=== PATIENT | male | born 1980 | race Caucasian/White ===

== ENCOUNTER 2020-01-31 09:00 | Outpatient (REF) | payer BC, SELFPAY ==
--- NOTE | 2020-01-31 10:15 | ECG_ITS ---
Test Reason : ANNUAL PHYSICAL Blood Pressure : / mmHG Vent. Rate : 050 BPM Atrial Rate : 050 BPM P-R Int : 190 ms QRS Dur : 106 ms QT Int : 434 ms P-R-T Axes : 056 005 043 degrees QTc Int : 395 ms Sinus bradycardia with marked sinus arrhythmia Incomplete right bundle branch block Abnormal ECG When compared with ECG of 08-MAR-2016 08:12, Sinus Arrhythmia is new Referred By: Malcolm Tobias Electronically Signed By:FUNMILAYO BACA MD
[2020-01-31 10:46] LABS: MANUAL DIFF FLAG NO
[2020-01-31 10:52] LABS: Basophils Percent Auto 0.3 % (0-2); Eosinophils Absolute Auto 0.1 X10*3/uL (0.0-0.4); Eosinophils Percent Auto 1.9 % (0-4); Hematocrit 44.1 % (42-52); Hemoglobin 14.6 g/dl (14.0-18.0); Imm Gran Abs Auto 0.04 X10*3/uL (0.00-0.03); Imm Gran Pct Auto 0.6 % (0.0-0.4); Lymphocytes Absolute Auto 1.9 X10*3/uL (1.2-4.9); Lymphocytes Percent Auto 28.1 % (20-40); Mean Corpuscular HGB Conc 33.1 g/dl (31.0-36.0); Mean Corpuscular Hemoglobin 27.7 pg (27.0-33.0); Mean Corpuscular Volume 83.5 fL (80-98); Mean Platelet Volume 10.2 fL (9.4-12.4); Monocytes Absolute Auto 0.5 X10*3/uL (0.1-1.2); Monocytes Percent Auto 7.1 % (2-11); Neutrophils Absolute Auto 4.2 X10*3/uL (2.0-8.3); Platelet Count 281 X10*3/uL (160-400); Red Blood Count 5.28 X10*6/uL (4.60-5.80); Red Cell Distribution Width 12.2 % (11.0-16.0); White Blood Count 6.7 X10*3/uL (4.8-10.8)
[2020-01-31 11:05] LABS: Glucose Urine UA NEG (NEG); Leukocyte Esterase Urine NEG (NEG); Nitrite Urine NEG (NEG); Specific Gravity - Urine 1.025 (1.005-1.025); Urine Blood NEG (NEG); Urine Ketones NEG (NEG); Urine Protein NEG (NEG-TRACE)
[2020-01-31 11:08] LABS: Alanine Aminotransferase 22 U/L (0-40); Albumin Level 4.5 g/dL (3.5-5.0); Alkaline Phosphatase 55 U/L (39-117); Anion Gap 10 (12-20); Aspartate Amino Transferase 16 U/L (5-37); Bilirubin Total 0.7 mg/dL (0.0-1.0); Blood Urea Nitrogen 19 mg/dL (9-16); Calcium 9.2 mg/dL (8.4-10.2); Carbon Dioxide 31 mmol/L (22-29); Chloride 103 mmol/L (96-108); Cholesterol 150 mg/dL; Estimated Glomerular Filt Rate > 60; Glucose Fasting 81 mg/dL (60-99); HDL Cholesterol 40 mg/dL; LDL Cholesterol Calculated 87 mg/dl; Potassium 4.4 mmol/l (3.3-5.1); Sodium 140 mmol/L (135-145); Triglycerides 117 mg/dL
[2020-01-31 11:10] LABS: Appearance Urine CLEAR; Color Urine YELLOW
== END 2020-01-31 09:01 | disposition home or self-care (01) ==
LOC: HO.LAB 09:00
PROVIDERS: PCP Internal Medicine; Visit Provider Internal Medicine
DX: Z00.00 Encounter for general adult medical examination without abnormal findings (principal); K21.00 Gastro-esophageal reflux disease with esophagitis, without bleeding; I49.8 Other specified cardiac arrhythmias
CPT/HCPCS: 36415; 80053; 80061; 81003; 85025; 93005

== ENCOUNTER → 2020-02-14 12:59 | Outpatient (BNVA) | payer BC, SELFPAY | PROVIDERS: PCP Internal Medicine; Visit Provider Urology | DX: Z76.89 Persons encountering health services in other specified circumstances (principal) ==

== ENCOUNTER → 2020-02-22 09:46 | Outpatient (BNVA) | payer BC, SELFPAY | PROVIDERS: PCP Internal Medicine; Visit Provider Surgery | DX: Z76.89 Persons encountering health services in other specified circumstances (principal) ==

== ENCOUNTER 2020-03-20 11:59 | Outpatient (REF) | payer BC, SELFPAY ==
[2020-03-20 12:14] VITALS: BP 107/69; PULSE 54; RESP 16; TEMP 36.5; O2SAT 100
[2020-03-20 12:17] VITALS: BMI 23.7
[2020-03-20 12:47] VITALS: BP 102/68; PULSE 60; RESP 16; O2SAT 99
--- NOTE | 2020-03-20 12:51 | PM.OP ---
Brief Operative Note Date of Service: 03/20/20 Pre-op diagnosis: Lipoma left abdomen Post-op diagnosis: same Procedure: excision of lipoma left abdomen Implants: none Surgeon: Andrew Cuevas MD Anesthesia: local Estimated blood loss (mL): 2 Pathology: other ( lipoma left abdomen 2 x 1 cm) Condition: stable Disposition: other ( home)
--- NOTE | 2020-03-20 12:52 | P.OP_ITS ---
Operative Note Operative Note Date of Service: 03/20/20 Narrative: . Preoperative diagnosis: Lipoma left abdominal wall Postoperative diagnosis: Same Procedure: Excision of lipoma left abdominal wall Surgeon: Andrew Cuevas MD [employer] W[employer] Saw Operator: None Anesthesia: Local Indications for procedure: 40-year-old male patient presenting with a soft the left abdomen in the left upper quadrant which is increasing in size and causing discomfort. Patient requests excision. Operative findings patient was found to have a two by one cm soft tissue mass consistent with a lipoma. Specimen: Lipoma left upper abdomen Estimated blood loss: Two cc Complications: None Procedure details: Patient was brought to the minor surgery suite and placed in a supine position. The site of surgery was confirmed by the patient in the left upper abdomen. Informed consent was confirmed. The skin was prepped with Betadine and draped in a sterile fashion. Lidocaine 1% with epi was infiltrated over the lipoma. An incision was made in the left upper abdomen over the lipoma in a transverse fashion. Sharp dissection around the lesion was performed and the lesion excised and sent to pathology. Skin was closed with a subcuticular 4-0 polysorb suture. Steristrips, 2x2 gauze and tegaderm was applied. The patient tolerated the procedure well and was discharged to home in stable condition.
== END 2020-03-20 12:00 | disposition home or self-care (01) ==
LOC: HO.MS 11:59
PROVIDERS: PCP Internal Medicine; Visit Provider Surgery
PROC: (CPT 11402; principal; 2020-03-20 12:20)
DX: D17.1 Benign lipomatous neoplasm of skin and subcutaneous tissue of trunk (principal)
CPT/HCPCS: 11402; 88304

== ENCOUNTER → 2020-03-27 09:30 | Outpatient (BNVA) | payer BC, SELFPAY | PROVIDERS: PCP Internal Medicine; Referring Provider Internal Medicine; Visit Provider Surgery | DX: Z76.89 Persons encountering health services in other specified circumstances (principal) ==

== ENCOUNTER 2021-02-05 10:45 | Outpatient (REF) | payer OTHER, SELFPAY ==
[2021-02-05 10:49] LABS: MANUAL DIFF FLAG NO
[2021-02-05 11:23] LABS: Basophils Percent Auto 0.4 % (0-2); Eosinophils Absolute Auto 0.2 X10*3/uL (0.0-0.4); Eosinophils Percent Auto 2.2 % (0-4); Hematocrit 41.2 % (42-52); Hemoglobin 14.3 g/dl (14.0-18.0); Imm Gran Abs Auto 0.05 X10*3/uL (0.00-0.03); Imm Gran Pct Auto 0.7 % (0.0-0.4); Lymphocytes Absolute Auto 1.9 X10*3/uL (1.2-4.9); Lymphocytes Percent Auto 27.1 % (20-40); Mean Corpuscular HGB Conc 34.7 g/dl (31.0-36.0); Mean Corpuscular Hemoglobin 28.3 pg (27.0-33.0); Mean Corpuscular Volume 81.4 fL (80-98); Mean Platelet Volume 10.1 fL (9.4-12.4); Monocytes Absolute Auto 0.6 X10*3/uL (0.1-1.2); Monocytes Percent Auto 8.3 % (2-11); Neutrophils Absolute Auto 4.3 X10*3/uL (2.0-8.3); Neutrophils Percent Auto 61.3 % (45-73); Platelet Count 289 X10*3/uL (160-400); Red Blood Count 5.06 X10*6/uL (4.60-5.80); Red Cell Distribution Width 12.1 % (11.0-16.0)
[2021-02-05 11:37] LABS: Alanine Aminotransferase 27 U/L (0-40); Albumin Level 4.4 g/dL (3.5-5.0); Alkaline Phosphatase 55 U/L (39-117); Anion Gap 12 (12-20); Aspartate Amino Transferase 22 U/L (5-37); Bilirubin Total 0.7 mg/dL (0.0-1.0); Blood Urea Nitrogen 15 mg/dL (9-16); Calcium 9.7 mg/dL (8.4-10.2); Carbon Dioxide 29 mmol/L (22-29); Chloride 105 mmol/L (96-108); Cholesterol 164 mg/dL; Estimated Glomerular Filt Rate > 60; Glucose Fasting 88 mg/dL (60-99); HDL Cholesterol 38 mg/dL; LDL Cholesterol Calculated 105 mg/dl; Sodium 142 mmol/L (135-145); Total Protein 6.9 g/dL (6.5-8.0); Triglycerides 106 mg/dL
[2021-02-05 11:55] LABS: Appearance Urine CLEAR; Color Urine YELLOW; Glucose Urine UA NEG (NEG); Leukocyte Esterase Urine NEG (NEG); Nitrite Urine NEG (NEG); Specific Gravity - Urine >= 1.030 (1.005-1.025); Urine Blood NEG (NEG); Urine Ketones NEG (NEG); Urine Protein NEG (NEG-TRACE)
== END 2021-02-05 10:46 | disposition home or self-care (01) ==
LOC: HO.LNP 10:45
PROVIDERS: Visit Provider Internal Medicine
DX: Z00.00 Encounter for general adult medical examination without abnormal findings (principal)
CPT/HCPCS: 80053; 80061; 81003; 85025

== ENCOUNTER 2022-02-07 11:18 | Outpatient (REF) | payer OTHER, SELFPAY ==
[2022-02-07 11:20] LABS: MANUAL DIFF FLAG NO
[2022-02-07 11:56] LABS: Appearance Urine Clear; Color Urine Yellow; Glucose Urine UA Negative (Negative); Leukocyte Esterase Urine Negative (Negative); Nitrite Urine Negative (Negative); PH 5.5 (5.0-9.0); Specific Gravity - Urine 1.025 (1.005-1.025); Urine Blood Negative (Negative); Urine Ketones Trace mg/dL (Negative); Urine Protein Negative (Neg-Trace)
[2022-02-07 11:58] LABS: Basophils Percent Auto 0.2 % (0-2); Eosinophils Absolute Auto 0.1 X10*3/uL (0.0-0.4); Eosinophils Percent Auto 2.3 % (0-4); Hematocrit 44.8 % (42.0-52.0); Imm Gran Abs Auto 0.02 X10*3/uL (0.00-0.03); Imm Gran Pct Auto 0.3 % (0.0-0.4); Lymphocytes Absolute Auto 1.8 X10*3/uL (1.2-4.9); Lymphocytes Percent Auto 31.4 % (20-40); Mean Corpuscular HGB Conc 33.5 g/dl (31.0-36.0); Mean Corpuscular Hemoglobin 27.8 pg (27.0-33.0); Mean Platelet Volume 10.1 fL (9.4-12.4); Monocytes Absolute Auto 0.4 X10*3/uL (0.1-1.2); Monocytes Percent Auto 7.3 % (2-11); Neutrophils Absolute Auto 3.4 x10*3/uL (2.0-8.3); Neutrophils Percent Auto 58.5 % (45-73); Platelet Count 323 X10*3/uL (160-400); Red Cell Distribution Width 12.5 % (11.0-16.0); White Blood Count 5.7 X10*3/uL (4.8-10.8)
[2022-02-07 12:06] LABS: Bacteria Urine None Seen (None Seen); Hyaline Casts Urine 0-2 /LPF (0-2); RBC Urine 0-2 /HPF (0-2); Squamous Epithelial Cell Urine 0-2 /HPF (0-2); WBC Urine 0-5 /HPF (0-5)
[2022-02-07 12:15] LABS: Alanine Aminotransferase 15 U/L (0-40); Albumin Level 4.6 g/dL (3.5-5.0); Alkaline Phosphatase 58 U/L (39-117); Anion Gap 16 (12-20); Aspartate Amino Transferase 19 U/L (5-37); Bilirubin Total 0.8 mg/dL (0.0-1.0); Blood Urea Nitrogen 16 mg/dL (9-16); Calcium 9.9 mg/dL (8.4-10.2); Carbon Dioxide 28 mmol/L (22-29); Chloride 105 mmol/L (96-108); Cholesterol 144 mg/dL; Estimated Glomerular Filt Rate > 60; Glucose Fasting 83 mg/dL (60-99); HDL Cholesterol 43 mg/dL; LDL Cholesterol Calculated 83 mg/dl; Potassium 4.8 mmol/L (3.3-5.1); Sodium 144 mmol/L (135-145); Total Protein 7.3 g/dL (6.5-8.0); Triglycerides 92 mg/dL
[2022-02-07 12:30] LABS: PSA,Total (Free>4and<10) 0.52 ng/mL (0.00-4.00)
== END 2022-02-07 11:19 | disposition home or self-care (01) ==
LOC: HO.LNP 11:18
PROVIDERS: Visit Provider Internal Medicine
DX: Z00.00 Encounter for general adult medical examination without abnormal findings (principal); Z12.5 Encounter for screening for malignant neoplasm of prostate
CPT/HCPCS: 80053; 80061; 81001; 84153; 85025

== ENCOUNTER 2022-02-14 12:03 | Outpatient (REF) | payer OTHER, SELFPAY ==
[2022-02-14 12:54] LABS: TSH reflex Free T4 1.92 uIU/mL (0.32-4.0)
[2022-02-20 17:02] LABS: Testosterone, Free 47.4 pg/mL (35.0-155.0); Testosterone, Total 271 ng/dL (250-1100)
== END 2022-02-14 12:04 | disposition home or self-care (01) ==
LOC: HO.LNP 12:03
PROVIDERS: Visit Provider Internal Medicine
DX: N52.9 Male erectile dysfunction, unspecified (principal)
CPT/HCPCS: 84402; 84403; 84443

== ENCOUNTER → 2022-03-03 08:24 | Outpatient (REF) | payer OTHER, SELFPAY ==
--- NOTE | 2022-03-03 08:28 | CA_ITS ---
Transthoracic Echocardiogram Patient (Last, First, Middle): Andrews Mendez H Gender: Male Date of : 1980 Age: 42 Procedure Date: 03/03/2022 Procedure Type: Transthoracic Echocardiogram Location: OP Height: 180.34 cm Weight: 75.75 kg BSA: 1.95 m2 Heart Rate: 59 bpm BP: 110 / 75 mmHg Supervisor [employer]: LIONEL Referring MD: Malcolm Tobias MD Firer Automatic Stoker: Yoni Weir MD Symptoms: R07.2 PRECORDIAL PAIN Study Quality: Adequate ECG Rhythm: Bradycardia Conclusions: - Essentially normal study Findings Left Ventricle Normal left ventricular size, thickness, and systolic function. The visually estimated ejection fraction is between 55-60%. Diastolic function is normal for age. Right Ventricle Normal right ventricular cavity size and systolic function. Atria Both atria are normal in size. There is no evidence of interatrial shunt. Aortic Valve Normal aortic valve structure and function. There is no aortic valve stenosis. There is no aortic valve regurgitation. Mitral Valve Normal mitral valve structure and function. There is trace mitral valve regurgitation. There is no mitral valve stenosis. Pulmonic Valve The pulmonic valve is likely normal. There is trace pulmonic valve regurgitation. Tricuspid Valve Normal tricuspid valve structure. There is trace tricuspid valve regurgitation. The right ventricular systolic pressure is normal. The right ventricular systolic pressure is 17 mmHg. Normal right atrial pressure. There is no evidence of pulmonary hypertension. Great Vessels All visible segments of the aorta are normal in size. The pulmonary artery was not well visualized. Venous The inferior vena cava is normal in size and collapses greater than 50% with inspiration. Pericardium/Pleural There is no evidence of pericardial effusion. Measurements 2D Linear Measurements IVSd: 0.86 0.6-0.9/0.6-1.0 cm LVIDd: 5.16 3.9-5.3/4.2-5.9 cm LVIDd Index: 2.65 2.4-3.2/2.2-3.1 cm/m2 LVIDs: 3.13 2.0-3.6 cm LVPWd: 0.89 0.7-1.1 cm LA Diam: 3.60 2.7-3.8/3.0-4.0 cm LAIDs Index: 1.85 1.5-2.3 cm/m2 LV Mass: 199.81 67-162/88-224 g LV Mass Index: 102.46 43-95/49-115 g/m2 LVOT Diam: 2.20 3.0+(-)1.3 cm 2D Systolic Function EF 4C: 55.10 >55% EF 2C: 53.60 >55% Mitral Valve MV Pk E: 0.99 MV PK A: 0.47 MV Decel Time: 191.00 E/A: 2.10 E'Lateral: 12.90 E'Medial: 10.20 E/E' Med: 9.70 E/E' Lat: 7.70 PHT: 56.00 MVA PHT: 3.93 Decel [place]: 5.19 Aortic Valve AoV Pk [place]: 1.12 AoV Mn [place]: 0.83 AoV VTI: 0.28 AoV Pk Grad: 5.00 Aov Mn Grad: 3.00 JOSE Cont.VTI: 3.02 LVOT LVOT Pk [place]: 1.03 LVOT Mn [place]: 0.70 LVOT VTI: 0.22 LVOT Pk Grad: 4.00 LVOT Mn Grad: 2.00 LVOT Diam: 2.20 LVOT Area: 3.80 Diastolic Function MV Pk E: 0.99 MV Pk A: 0.47 E/A: 2.10 E'Medial: 10.20 E/E' Med: 9.70 E' Laterial: 12.90 E/E' Lat: 7.70 Right Ventricle TAPSE (mm): 25.20 TVS' [place]: 16.00 Tricuspid Valve TR Pk [place]: 1.85 TR Pk Grad: 14.00 RA Press: 3.00 RVSP: 17.00 Great Vessels Aorta Sinus of Valsalva: 3.80 2.0-3.5 cm Ao Asc: 3.70 2.1-3.4 cm Pulmonary Valve PV Pk [place]: 0.69 Peak PV Grad: 2.00 Updated in Other Vendor System with Status of Final Yoni Weir MD electronically signed on 03/03/2022 5:46:41 PM with status of Final
== END ==
LOC: HO.CARD 08:24
PROVIDERS: PCP Internal Medicine; Visit Provider Internal Medicine
DX: R07.2 Precordial pain (principal)
CPT/HCPCS: 93306

== ENCOUNTER 2022-05-12 16:45 | Outpatient (REF) | payer OTHER, SELFPAY ==
[2022-05-19 17:13] LABS: Testosterone, Free 54.3 pg/mL (35.0-155.0); Testosterone, Total 289 ng/dL (250-1100)
== END 2022-05-12 16:46 | disposition home or self-care (01) ==
LOC: HO.LNP 16:45
PROVIDERS: Visit Provider Internal Medicine
DX: E29.1 Testicular hypofunction (principal)
CPT/HCPCS: 84402; 84403

== ENCOUNTER → 2022-05-28 13:34 | Outpatient (BNVA) | payer OTHER, SELFPAY | PROVIDERS: PCP Internal Medicine; Visit Provider Nurse Practitioner Family | DX: Z12.89 Encounter for screening for malignant neoplasm of other sites (principal) ==

== ENCOUNTER 2022-06-03 08:01 | Outpatient (REF) | payer OTHER, SELFPAY ==
[2022-06-03 11:57] LABS: C Reactive Protein 0.13 mg/dL (< or = 0.50); Lipase 22 U/L (8-78)
[2022-06-03 12:34] LABS: Folate > 20.0 ng/mL (> or = 4.0); Vitamin B12 529 pg/mL (200-900)
[2022-06-06 13:43] LABS: Transglutaminase Ab IgG <1.0 U/mL; Transglutaminase IgA <1.0 U/mL
[2022-06-07 16:38] LABS: Vitamin D 25-OH, D2 <4 ng/mL; Vitamin D 25-OH, D3 34 ng/mL; Vitamin D 25-OH, Total 34 ng/mL (30-100)
== END 2022-06-03 08:02 | disposition home or self-care (01) ==
LOC: HO.WFDLDS 08:01
PROVIDERS: Visit Provider Nurse Practitioner Family
DX: K20.90 Esophagitis, unspecified without bleeding (principal); R19.7 Diarrhea, unspecified; E55.9 Vitamin D deficiency, unspecified; K58.0 Irritable bowel syndrome with diarrhea
CPT/HCPCS: 36415; 82306; 82607; 82746; 83690; 86003; 86140; 86364

== ENCOUNTER 2022-06-16 16:00 | Outpatient (REF) | payer OTHER, SELFPAY ==
[2022-06-17 19:49] LABS: Lutenizing Hormone 1.8 mIU/mL (1.5-9.3)
== END 2022-06-16 16:01 | disposition home or self-care (01) ==
LOC: HO.LNP 16:00
PROVIDERS: PCP Internal Medicine; Visit Provider Internal Medicine
DX: E29.1 Testicular hypofunction (principal)
CPT/HCPCS: 83001; 83002

== ENCOUNTER → 2022-10-07 13:30 | Outpatient (BNVA) | payer OTHER, SELFPAY | PROVIDERS: PCP Internal Medicine; Visit Provider Nurse Practitioner Family ==

== ENCOUNTER 2023-02-12 11:05 | Outpatient (REF) | payer OTHER, SELFPAY ==
[2023-02-12 11:10] LABS: MANUAL DIFF FLAG NO
[2023-02-12 11:20] LABS: Appearance Urine Clear; Color Urine Yellow; Glucose Urine UA Negative (Negative); Leukocyte Esterase Urine Negative (Negative); Nitrite Urine Negative (Negative); PH 5.5 (5.0-9.0); Specific Gravity - Urine 1.025 (1.005-1.025); Urine Blood Negative (Negative); Urine Ketones Negative (Negative); Urine Protein Negative (Neg-Trace)
[2023-02-12 11:25] LABS: Bacteria Urine None Seen (None Seen); Hyaline Casts Urine 0-2 /LPF (0-2); RBC Urine 0-2 /HPF (0-2); Squamous Epithelial Cell Urine 0-2 /HPF (0-2); WBC Urine 0-5 /HPF (0-5)
[2023-02-12 11:34] LABS: Basophils Percent Auto 0.5 % (0-2); Eosinophils Absolute Auto 0.2 X10*3/uL (0.0-0.4); Eosinophils Percent Auto 3.4 % (0-4); Hematocrit 42.3 % (42.0-52.0); Hemoglobin 14.5 g/dl (14.0-18.0); Imm Gran Abs Auto 0.03 X10*3/uL (0.00-0.03); Imm Gran Pct Auto 0.5 % (0.0-0.4); Lymphocytes Absolute Auto 2.2 X10*3/uL (1.2-4.9); Lymphocytes Percent Auto 33.7 % (20-40); Mean Corpuscular HGB Conc 34.3 g/dl (31.0-36.0); Mean Corpuscular Hemoglobin 28.5 pg (27.0-33.0); Mean Corpuscular Volume 83.1 fL (80.0-98.0); Monocytes Absolute Auto 0.6 X10*3/uL (0.1-1.2); Monocytes Percent Auto 8.6 % (2-11); Neutrophils Absolute Auto 3.5 x10*3/uL (2.0-8.3); Neutrophils Percent Auto 53.3 % (45-73); Platelet Count 256 X10*3/uL (160-400); Red Blood Count 5.09 X10*6/uL (4.60-5.80); Red Cell Distribution Width 12.3 % (11.0-16.0); White Blood Count 6.5 X10*3/uL (4.8-10.8)
[2023-02-12 11:48] LABS: Alanine Aminotransferase 19 U/L (0-40); Albumin Level 4.2 g/dL (3.5-5.0); Alkaline Phosphatase 51 U/L (39-117); Anion Gap 10 (12-20); Aspartate Amino Transferase 19 U/L (5-37); Bilirubin Total 0.6 mg/dL (0.0-1.0); Blood Urea Nitrogen 19 mg/dL (9-16); Calcium 9.7 mg/dL (8.4-10.2); Carbon Dioxide 29 mmol/L (22-29); Chloride 107 mmol/L (96-108); Cholesterol 144 mg/dL (<200); Estimated Glomerular Filt Rate > 60; Glucose Fasting 86 mg/dL (60-99); HDL Cholesterol 39 mg/dL (>40); LDL Cholesterol Calculated 85 mg/dL (<100); Sodium 142 mmol/L (135-145); Total Protein 6.8 g/dL (6.5-8.0); Triglycerides 104 mg/dL (<150)
[2023-02-12 12:08] LABS: PSA,Total (Free>4and<10) 0.56 ng/mL (0.00-4.00)
[2023-02-16 14:59] LABS: Testosterone, Free 73.9 pg/mL (35.0-155.0); Testosterone, Total 336 ng/dL (250-1100)
== END 2023-02-12 11:06 | disposition home or self-care (01) ==
LOC: HO.LNP 11:05
PROVIDERS: Visit Provider Internal Medicine
DX: Z00.00 Encounter for general adult medical examination without abnormal findings (principal); Z12.5 Encounter for screening for malignant neoplasm of prostate; E29.1 Testicular hypofunction
CPT/HCPCS: 80053; 80061; 81001; 84153; 84402; 84403; 85025

== ENCOUNTER 2024-02-16 11:34 | Outpatient (REF) | payer OTHER, SELFPAY ==
[2024-02-16 11:39] LABS: MANUAL DIFF FLAG NO
[2024-02-16 11:44] LABS: Basophils Percent Auto 0.4 % (0-2); Eosinophils Absolute Auto 0.2 X10*3/uL (0.0-0.4); Eosinophils Percent Auto 2.8 % (0-4); Hematocrit 41.6 % (42.0-52.0); Hemoglobin 14.5 g/dl (14.0-18.0); Imm Gran Abs Auto 0.04 X10*3/uL (0.00-0.03); Imm Gran Pct Auto 0.6 % (0.0-0.4); Lymphocytes Absolute Auto 1.8 X10*3/uL (1.2-4.9); Lymphocytes Percent Auto 25.8 % (20-40); Mean Corpuscular HGB Conc 34.9 g/dl (31.0-36.0); Mean Corpuscular Hemoglobin 28.8 pg (27.0-33.0); Mean Corpuscular Volume 82.5 fL (80.0-98.0); Mean Platelet Volume 10.1 fL (9.4-12.4); Monocytes Absolute Auto 0.5 X10*3/uL (0.1-1.2); Neutrophils Absolute Auto 4.2 x10*3/uL (2.0-8.3); Neutrophils Percent Auto 62.4 % (45-73); Platelet Count 292 X10*3/uL (160-400); Red Blood Count 5.04 X10*6/uL (4.60-5.80); Red Cell Distribution Width 12.4 % (11.0-16.0); White Blood Count 6.8 X10*3/uL (4.8-10.8)
[2024-02-16 11:47] LABS: Appearance Urine Clear; Color Urine Yellow; Glucose Urine UA Negative (Negative); Leukocyte Esterase Urine Negative (Negative); Nitrite Urine Negative (Negative); PH 5.5 (5.0-9.0); Specific Gravity - Urine 1.025 (1.005-1.025); Urine Blood Negative (Negative); Urine Ketones Negative (Negative); Urine Protein Negative (Neg-Trace)
[2024-02-16 11:52] LABS: Bacteria Urine None Seen (None Seen); Hyaline Casts Urine 0-2 /LPF (0-2); RBC Urine 0-2 /HPF (0-2); Squamous Epithelial Cell Urine 0-2 /HPF (0-2); WBC Urine 0-5 /HPF (0-5)
[2024-02-16 12:09] LABS: Alanine Aminotransferase 21 U/L (0-40); Albumin Level 4.4 g/dL (3.5-5.0); Alkaline Phosphatase 56 U/L (39-117); Anion Gap 12 (12-20); Aspartate Amino Transferase 28 U/L (5-37); Bilirubin Total 0.4 mg/dL (0.0-1.0); Blood Urea Nitrogen 20 mg/dL (9-16); Calcium 9.7 mg/dL (8.4-10.2); Carbon Dioxide 28 mmol/L (22-29); Chloride 108 mmol/L (96-108); Cholesterol 156 mg/dL (<200); Estimated Glomerular Filt Rate > 60; Glucose Fasting 81 mg/dL (60-99); HDL Cholesterol 42 mg/dL (>40); LDL Cholesterol Calculated 84 mg/dL (<100); Potassium 3.9 mmol/L (3.3-5.1); Sodium 144 mmol/L (135-145); Total Protein 7.1 g/dL (6.5-8.0); Triglycerides 154 mg/dL (<150)
[2024-02-16 12:19] LABS: PSA,Total (Free>4and<10) 0.68 ng/mL (0.00-4.00)
[2024-02-21 12:59] LABS: Testosterone, Total 244 ng/dL (250-1100)
== END 2024-02-16 11:35 | disposition home or self-care (01) ==
LOC: HO.LNP 11:34
PROVIDERS: Visit Provider Internal Medicine
DX: Z00.00 Encounter for general adult medical examination without abnormal findings (principal); E29.1 Testicular hypofunction; K21.00 Gastro-esophageal reflux disease with esophagitis, without bleeding; Z12.5 Encounter for screening for malignant neoplasm of prostate
CPT/HCPCS: 80053; 80061; 81001; 84153; 84403; 85025

== ENCOUNTER 2025-02-20 10:11 | Outpatient (REF) | payer OTHER, SELFPAY ==
--- OUTSIDE RECORDS SUMMARY | 2024-02-16 03:30 | XMS_ITS ---
Author Organization Malcolm Tobias MD Address [address] [place] [phone] Care Team Providers Care Principle Industrial Hygienist Name Role Phone Malcolm Tobias Primary Care Provider Results Component Value Reference Range Notes Complete Blood Count Auto Di ff Reviewed date:02/16/2024 12:39:52 PM Interpretation: Performing Lab:[facility], [address] [place] [phone] Notes/Report: White Blood Count 6.8 4.8-10.8 X10*3/uL Red Blood Count 5.04 4.60-5.80 X10*6/uL Hemoglobin 14.5 14.0-18.0 g/dl Hematocrit 41.6 42.0-52.0 % Mean Corpuscular Volume 82.5 80.0-98.0 fL Mean Corpuscular Hemoglobin 28.8 27.0-33.0 pg Mean Corpuscular HGB Conc 34.9 31.0-36.0 g/dl Red Cell Distribution Width 12.4 11.0-16.0 % Platelet Count 292 160-400 X10*3/uL Mean Platelet Volume 10.1 9.4-12.4 fL Neutrophils Percent Auto 62.4 45-73 % Imm Gran Pct Auto 0.6 0.0-0.4 % Lymphocytes Percent Auto 25.8 20-40 % Monocytes Percent Auto 8.0 2-11 % Eosinophils Percent Auto 2.8 0-4 % Basophils Percent Auto 0.4 0-2 % NRBC Pct Auto 0.0 0.0-0.2 /100WBC Neutrophils Absolute Auto 4.2 2.0-8.3 x10*3/u L Imm Gran Abs Auto 0.04 0.00-0.03 X10*3/uL Lymphocytes Absolute Auto 1.8 1.2-4.9 X10*3/u L Monocytes Absolute Auto 0.5 0.1-1.2 X10*3/uL Eosinophils Absolute Auto 0.2 0.0-0.4 X10*3/u L Basophils Absolute Auto 0.0 0.0-0.2 X10*3/uL NRBC Abs Auto 0.000 0.0-0.012 X10*3/uL Comprehensive [place]. Panel Fa st Reviewed date:02/16/2024 12:34:57 PM Interpretation: Performing Lab:[facility], [address] [place] [phone] Notes/Report: Sodium 144 135-145 mmol/L Potassium 3.9 3.3-5.1 mmol/L Chloride 108 96-108 mmol/L Carbon Dioxide 28 22-29 mmol/L Anion Gap 12 12-20 Blood Urea Nitrogen 20 9-16 mg/dL Creatinine 1.04 0.5-1.4 mg/dL Estimated Glomerular Filt Rate > 60 NOTE: For -Citizen Of [place] individuals, multiply the result by 1.210. Chronic Kidney Disease: Estimated GFR < 60 mL/min/1.73m2 Severe Kidney Disease: Estimated GFR < 15 mL/min/1.73m2 Glucose Fasting 81 60-99 mg/dL Calcium 9.7 8.4-10.2 mg/dL Bilirubin Total 0.4 0.0-1.0 mg/dL Aspartate Amino Transferase 28 5-37 U/L Alanine Aminotransferase 21 0-40 U/L Total Protein 7.1 6.5-8.0 g/dL Albumin Level 4.4 3.5-5.0 g/dL Alkaline Phosphatase 56 39-117 U/L Lipid Panel Reviewed date:02/16/2024 12:12:59 PM Interpretation: Performing Lab:[address] [phone] Notes/Report: Triglycerides 154 <150 mg/dL Desirable Triglyceride: less than 150 mg/dL Borderline High Triglyceride 150-199 mg/dL High Triglyceride: 200-499 mg/dL Very High Triglyceride: greater than or equal to 5OO mg/dL Cholesterol 156 <200 mg/dL Desirable Cholesterol: less than 200 mg/dL Borderline High Cholesterol: 200-239 mg/dL High Cholesterol: greater than 239 mg/dL LDL Cholesterol Calculated 84 <100 mg/dL Desirable LDL: less than 100 mg/dL Near Optimal/Above Optimal LDL: 110-129 mg/dL Borderline High LDL: 130-159 mg/dL High LDL: 160-189 mg/dL Very High LDL: greater than or equal to 190 mg/dL HDL Cholesterol 42 >40 mg/dL Desirable HDL: greater than 40 mg/dL Note: This HDL assay may give artificially low results in patients with liver disease. PSA,Total (Free>4and<10) Reviewed date:02/16/2024 12:27:03 PM Interpretation: Performing Lab:[address] [phone] Notes/Report: PSA,Total (Free>4and<10) 0.68 0.00-4.00 ng/mL A Free PSA was not performed: The percentage of Free PSA can be used to enhance the differentiation of prostate cancer from benign prostatic disease in subjects whose PSA levels are between 4.0 and 10.0 ng/mL. For subjects whose PSA levels are below 4.0 or above 10.0 ng/mL, the risk of prostate cancer is determined on the basis of the PSA alone. Therefore the % Free PSA is recommended only for those subjects whose PSA levels are between 4.0 and 10.0 ng/mL. PSA methodology: Segura Alinity i Chemiluminescent Microparticle Immunoassay (CMIA) Testosterone, Total Reviewed date:02/22/2024 05:51:18 PM Interpretation: Performing Lab:[address], [place] [address] Notes/Report: Testosterone, Total [phone] ng/dL For additional information, please refer to http://education.[employer]/faq/ TotalTestosteroneLCMSMSFAQ 165 (This link is being provided for informational/ educational purposes only.) This test was developed and its analytical performance characteristics have been determined by [employer] [place], [place]. It has not been cleared or approved by the U.S. Food and Drug Administration. This assay has been validated pursuant to the CLIA regulations and is used for clinical purposes. THIS TEST WAS PERFORMED AT: [employer] [address] CRISTI WHITEHEAD MD,PHD UA ClnCatch+Micro w/rflx Cul t Reviewed date:02/16/2024 12:38:37 PM Interpretation: Performing Lab:[facility], [address] [place] [phone] Notes/Report: [id number] 0830 Urine, Clean Catch Color Urine Yellow Appearance Urine Clear PH 5.5 5.0-9.0 Glucose Urine UA Negative Negative mg/dL Urine Blood Negative Negative Specific [place] - Urine 1.025 1.005-1.025 Urine Protein Negative Neg-Trace mg/dL Urine Ketones Negative Negative mg/dL Nitrite Urine Negative Negative Leukocyte Esterase Urine Negative Negative RBC Urine 0-2 0-2 /HPF WBC Urine 0-5 0-5 /HPF Squamous Epithelial Cell Urine 0-2 0-2 /HPF Bacteria Urine None Seen None Seen Hyaline Casts Urine 0-2 0-2 /LPF REASON FOR VISIT yearly fasting labs Encounters Encounter Location Date Provider Diagnosis Malcolm Tobias MD [address] [place], [place] [id number] 02/16/2024 Malcolm Tobias Testosterone deficiency in male E29.1 ; Reflux esophagitis K21.00 and Annual physical exam Z00.00 Assessments Encounter Date Diagnosis (ICD Code) Assessment Notes Treatment Notes Treatment Clinical Notes Section Notes 02/16/2024 Testosterone deficiency in male (ICD-10 - E29.1) 02/16/2024 Reflux esophagitis (ICD-10 - K21.00) 02/16/2024 Annual physical exam (ICD-10 - Z00.00) Plan Of Treatment Next Appt Details Provider Name:Malcolm Alvarado ier, 02/27/2025 08:30:00 AM, [address] [facility], [address], [place], [phone], Progress Notes * Andrews MENDEZ IVDOB: (45 yo M)Acc No.[id number]:02/16/2024 Progress Note Patient: Andrews KAPOOR IV Provider: Sam Tobias MD :1980 A ge:44 Y S ex:Male Date:02/16/2024 Address:[address] [place] [address] [facility] [id number] Subjective: * Chief Complaints: * 1 . Yearly fasting labs. * Medical History: Objective: * Vitals: Assessment: * Assessment: 1. T estosterone deficiency in male - E29.1 (Primary) 2 . R eflux esophagitis - K21.00 3 . A nnual physical exam - Z00.00 Plan: * Treatment: ?LAB: UA ClnCatch+Micro w/rflx Cult (Collection Date & Time - 02/16/2024 08:30 AM)2.?Reflux esophagitis?LAB: Complete Blood Count Auto Diff (Collection Date & Time - 02/16/2024 08:30 AM) ?LAB: Comprehensive [place]. Panel Fast (Collection Date & Time - 02/16/2024 08:30 AM) ?LAB: Lipid Panel (Collection Date & Time - 02/16/2024 08:30 AM) ?LAB: PSA,Total (Free>4and<10) (Collection Date & Time - 02/16/2024 08:30 AM) ?LAB: Testosterone, Total (Collection Date & Time - 02/16/2024 08:30 AM)* send to endocrine for low te stosteronePelletier,Glenna 02/22/2024 12:44:41 PM EST > spoke with patient he wants to discuss this during his appt 02-23-24 PE ?LAB: UA ClnCatch+Micro w/rflx Cult (Collection Date & Time - 02/16/2024 08:30 AM)3.?Annual physical exam?LAB: Complete Blood Count Auto Diff (Collection Date & Time - 02/16/2024 08:30 AM) ?LAB: Comprehensive [place]. Panel Fast (Collection Date & Time - 02/16/2024 08:30 AM) ?LAB: Lipid Panel (Collection Date & Time - 02/16/2024 08:30 AM) ?LAB: PSA,Total (Free>4and<10) (Collection Date & Time - 02/16/2024 08:30 AM) ?LAB: Testosterone, Total (Collection Date & Time - 02/16/2024 08:30 AM)* send to endocrine for low te stosteronePelletier,Glenna 02/22/2024 12:44:41 PM EST > spoke with patient he wants to discuss this during his appt 02-23-24 PE ?LAB: UA ClnCatch+Micro w/rflx Cult (Collection Date & Time - 02/16/2024 08:30 AM) * Procedure Codes: 3 6415 VENIPUNCT, ROUTINE* * * The named appointment provid er may or may not be the originator of this progress note, and it is not deemed complete until electronically signed by the appointment provider. Sign off status: Pending * Provider: Sam Tobias MD Date: Generated for Estevan roberts/Lucero/Vimalitting on: 04/22/2024 12:10 PM EST
--- OUTSIDE RECORDS SUMMARY | 2024-02-23 03:30 | XMS_ITS ---
Author Organization Malcolm Tobias MD Address [address] [place] [phone] Care Team Providers Care Guncotton Packer Name Role Phone Malcolm Tobias Primary Care Provider Allergies No Known Allergies Results Component Value Reference Range Notes Occult Blood, Stool, Guaiac Reviewed date:02/23/2024 11:24:33 AM Interpretation:Negative Performing Lab: Notes/Report: Negative Occult Blood, Stool, Guaiac Neg REASON FOR VISIT ANNUAL EXAM Medications Medication SIG (Take, Route, Fr equency, Duration) Notes Start Date End Date Status Tadalafil 20 MG 1/2 tablet Orally On ce a day as needed for 30 days 02/14/2022 Active Social History Tobacco Use: Social History Observation Description Date Details (start date - stop date) Never Smoker NA - NA Tobacco Use/Smoking Question Answer Notes Patient is a nonsmoker Additional Findings: Tobacco Non-User Cu rrent non-smoker, currently using no form of tobacco Alcohol Screen Question Answer Notes Did you have a drink contain ing alcohol in the past year? Yes How often did you have a dri nk containing alcohol in the past year? Monthly or less (1 point) How many drinks did you have on a typical day when you were drinking in the past year? 1 or 2 drinks (0 point) How often did you have 6 or more drinks on one occasion in the past year? Never (0 point) Points 1 Interpretation Negative Vital Signs Blood pressure systolic 112 mm Hg 02/23/20 24 Blood pressure diastolic 66 mm Hg 024 Height 72 in 02/23/2024 Weight 170 lbs 02/23/2024 BMI 23.05 kg/m2 02/23/2024 Encounters Encounter Location Date Provider Diagnosis Malcolm Tobias MD [address] [place] [address] [address] [place], [place] [phone] 02/23/2024 Malcolm Tobias Testosterone deficiency in male E29.1 ; Annual physical exam Z00.00 ; Erectile dysfunction, unspecified erectile dysfunction type N52.9 ; Reflux esophagitis K21.00 ; Colon cancer screening Z12.11 and Depression screening Z13.31 Assessments Encounter Date Diagnosis (ICD Code) Assessment Notes Treatment Notes Treatment Clinical Notes Section Notes 02/23/2024 Testosterone deficiency in male (ICD-10 - E29.1) send for notes from [facility] endocrine from last year 02/23/2024 Annual physical exam (ICD-10 - Z00.00) labs reviewed and discussed with patient 02/23/2024 Erectile dysfunction, unspecified erectile dysfunction type (ICD-10 - N52.9) stable, will continue current regiment 02/23/2024 Reflux esophagitis (ICD-10 - K21.00) doing well 02/23/2024 Colon cancer screening (ICD-10 - Z12.11) guaiac negative 02/23/2024 Depression screening (ICD-10 - Z13.31) negative screen Plan Of Treatment Medication Medication Name Sig Start Date Stop Date Notes Tadalafil 20 MG 1/2 tablet Orally On ce a day as needed for 30 days 02/14/2022 Treatment Notes Assessment Notes Testosterone deficiency in male send for notes from [facility] endocrine from last year Annual physical exam labs reviewed and d iscussed with patient Erectile dysfunction, unspec ified erectile dysfunction type stable, will continue current regiment Reflux esophagitis doing well Colon cancer screening guaiac negative Depression screening negative screen Next Appt Details Follow Up: 1 Year, Reason: Provider Name:Malcolm Alvarado ier, 02/27/2025 08:30:00 AM, [address], [address], [place], [place], [phone], Progress Notes * Andrews MENDEZ IVDOB: (44 yo M)Acc No.[id number]:02/23/2024 Progress Notes Patient: Andrews Howell Provider: Sam Tobias MD :1980 A ge:44 Y S ex:Male Date:02/23/2024 Address:[address] [place], [place] [address]jovanny Borja [facility], [id number] Subjective: * Chief Complaints: * A NNUAL EXAM * HPI: D epression Screening: PHQ-9 L ittle interest or pleasure in doing things N ot at all, F eeling down, depressed, or hopeless N ot at all, T rouble falling or staying asleep, or sleeping too much N ot at all, F eeling tired or having little energy N ot at all, P oor appetite or overeating N ot at all, F eeling bad about yourself or that you are a failure, or have let yourself or your family down N ot at all, T rouble concentrating on things, such as reading the newspaper or watching television N ot at all, M oving or speaking so slowly that other people could have noticed; or the opposite, being so fidgety or restless that you have been moving around a lot more than usual N ot at all, T houghts that you would be better off or of hurting yourself in some way N ot at all, T otal Score 0 . C ommunication Needs: Communication Needs D oes the patient have a hearing impairment N o, D oes the patient have a vision impairment? N o, D oes the patient have a cognition impairment? N o. S LELE Questions: SDOH Questions I n the past year have you been worried about losing housing? N o, I n the past year have you or any family members you live with been unable to get any of the following when it was really needed? Check all that apply: N one. S ymptom(s): patient is a 44 yo male here for annual visit with reviewof recent labs and follow up of chronic issues. * ROS: G eneral/Constitutional: Patient denies f atigue , headache. C hange in appetite?denies. C hills d enies. F ever d enies. O phthalmologic: Blurred vision d enies. D ischarge d enies. P ain d enies. E NT: Patient denies d ecreased sense of smell , any loss of taste , sore throat. D ecreased hearing d enies. S ore throat d enies. S wollen glands d enies. E ndocrine: Cold intolerance d enies. E xcessive thirst d enies. H eat intolerance d enies. W eight loss d enies. R espiratory: Cough d enies. S hortness of breath at rest d enies. S hortness of breath with exertion d enies. W heezing d enies. C ardiovascular: Chest pain at rest d enies. C hest pain with exertion?denies. I rregular heartbeat d enies. S hortness of breath d enies. ? G astrointestinal: Abdominal pain d enies. C hange in bowel habits d enies. D iarrhea d enies. N ausea d enies. R ectal bleeding d enies. V omiting d enies . G enitourinary: Blood in urine d enies. D ifficulty urinating d enies. F requent urination d enies. M usculoskeletal: Patient denies m uscle aches. P ainful joints d enies. W eakness d enies. P eripheral Vascular: Patient denies r ed and blue toes. S kin: Dry skin d enies. I tching d enies. D enies?Mole(s), changes in moles, new moles or any lesions of concern. D enies P hotosensitivity. R get d enies. N eurologic: Dizziness d enies. F ainting d enies. H eadache?denies. * Medical History: * Surgical History: * Hospitalization/Major Diagno stic Procedure: * Family History: F ather: alive 70 yrs, diagnosed with Hypertension. M other: alive 65 yrs, diagnosed with Hypertension. 1 brother(s) , 1 sister(s) . 2 daughter(s) . . Father- Cardiac Mother-Healthy, Denies mental health/substance abuse family history, No pertinent family medical history, Denies mental health/substance abuse family history, Denies mental health/substance abuse family history. * Social History: T obacco Use: T obacco Use/Smoking P atmaribell is a n onsmoker, A dditional Findings: Tobacco Non-User C urrent non-smoker, currently using no form of tobacco. D rugs/Alcohol: A lcohol Screen D id you have a drink containing alcohol in the past year? Y es, H ow often did you have a drink containing alcohol in the past year? M onthly or less (1 point), H ow many drinks did you have on a typical day when you were drinking in the past year? 1 or 2 drinks (0 point), H ow often did you have 6 or more drinks on one occasion in the past year? N ever (0 point), P oints 1 , I nterpretation N egative. M iscellaneous: n o Caffeine. Children: yes. no Community involvements. Exercise: yes, biking couple times a week 25-75 miles. no Home smoke detector use. Living with: spouse. Marital status: . Occupation: works full-time. Pets: 1 cat 1 dog. no Travel outside of the [place]. * Medications: T akingTadalafil 20 MG Tablet 1/2 tablet Orally Once a day as neededMedication List reviewed and reconciled with the patientTaking Tadalafil 20 MG Tablet 1/2 tablet Orally Once a day as neededMedication List reviewed and reconciled with the patient * Allergies: N .K.D.A.yes[Allergies Verified] Objective: * Vitals: H t: 72, Wt:170, BMI:23.05, BP:112/66. * P ast Orders: L ab:Comprehensive [place]. Panel Fast (Order Date - 02/16/2024) (Collection Date - 02/16/2024) Value Reference Range Sodium 144 135-145 - mmol/L Bilirubin Total 0.4 0.0-1.0 - mg/dL Aspartate Amino Transferase 28 5-37 - U/L Alanine Aminotransferase 21 0-40 - U/L Total Protein 7.1 6.5-8.0 - g/dL Albumin Level 4.4 3.5-5.0 - g/dL Alkaline Phosphatase 56 39-117 - U/L Potassium 3.9 3.3-5.1 - mmol/L Chloride 108 96-108 - mmol/L Carbon Dioxide 28 22-29 - mmol/L Anion Gap 12 12-20 - Blood Urea Nitrogen 20 H 9-16 - mg/dL Creatinine 1.04 0.5-1.4 - mg/dL Estimated Glomerular Filt Rate > 60 - Glucose Fasting 81 60-99 - mg/dL Calcium 9.7 8.4-10.2 - mg/dL L ab:Lipid Panel (Order Date - 02/16/2024) (Collection Date - 02/16/2024) Value Reference Range Triglycerides 154 H <150 - mg/dL Cholesterol 156 <200 - mg/dL LDL Cholesterol Calculated 84 <100 - mg/dL HDL Cholesterol 42 >40 - mg/dL L ab:PSA,Total (Free>4and<10) (Order Date - 02/16/2024) (Collection Date - 02/16/2024) Value Reference Range PSA,Total (Free>4and<10) 0.68 0.00-4.00 - ng/ mL L ab:UA ClnCatch+Micro w/rflx Cult (Order Date - 02/16/2024) (Collection Date - 02/16/2024) Value Reference Range Color Urine Yellow - Appearance Urine Clear - PH 5.5 5.0-9.0 - Glucose Urine UA Negative Negative - mg/dL Urine Blood Negative Negative - Specific [place] - Urine 1.025 1.005-1.025 - Urine Protein Negative Neg-Trace - mg/dL Urine Ketones Negative Negative - mg/dL Nitrite Urine Negative Negative - Leukocyte Esterase Urine Negative Negative - RBC Urine 0-2 0-2 - /HPF WBC Urine 0-5 0-5 - /HPF Squamous Epithelial Cell Urine 0-2 0-2 - /HP F Bacteria Urine None Seen None Seen - Hyaline Casts Urine 0-2 0-2 - /LPF L ab:Complete Blood Count Auto Diff (Order Date - 02/16/2024) (Collection Date - 02/16/2024) Value Reference Range White Blood Count 6.8 4.8-10.8 - X10*3/uL Red Blood Count 5.04 4.60-5.80 - X10*6/uL Hemoglobin 14.5 14.0-18.0 - g/dl Hematocrit 41.6 L 42.0-52.0 - % Mean Corpuscular Volume 82.5 80.0-98.0 - fL Mean Corpuscular Hemoglobin 28.8 27.0-33.0 - pg Mean Corpuscular HGB Conc 34.9 31.0-36.0 - g/ dl Red Cell Distribution Width 12.4 11.0-16.0 - % Platelet Count 292 160-400 - X10*3/uL Mean Platelet Volume 10.1 9.4-12.4 - fL Neutrophils Percent Auto 62.4 45-73 - % Imm Gran Pct Auto 0.6 H 0.0-0.4 - % Lymphocytes Percent Auto 25.8 20-40 - % Monocytes Percent Auto 8.0 2-11 - % Eosinophils Percent Auto 2.8 0-4 - % Basophils Percent Auto 0.4 0-2 - % NRBC Pct Auto 0.0 0.0-0.2 - /100WBC Neutrophils Absolute Auto 4.2 2.0-8.3 - x10* 3/uL Imm Gran Abs Auto 0.04 H 0.00-0.03 - X10*3/uL Lymphocytes Absolute Auto 1.8 1.2-4.9 - X10* 3/uL Monocytes Absolute Auto 0.5 0.1-1.2 - X10*3/ uL Eosinophils Absolute Auto 0.2 0.0-0.4 - X10* 3/uL Basophils Absolute Auto 0.0 0.0-0.2 - X10*3/ uL NRBC Abs Auto 0.000 0.0-0.012 - X10*3/uL * Examination: G eneral Examination: GENERAL APPEARANCE: w ell developed, well nourished, in no acute distress. HEAD: n ormocephalic, atraumatic. EYES: p upils equal, round, reactive to light and accommodation, sclera non-icteric. EARS: n ormal. ORAL CAVITY: m ucosa moist. THROAT: c lear. NECK/THYROID: n candelario supple, full range of motion, no cervical lymphadenopathy, no bruits. SKIN: w arm and dry, no suspicious lesions. HEART: r egular rate and rhythm, S1, S2 normal, no murmurs.? LUNGS: c lear to auscultation bilaterally. ABDOMEN: s oft, nontender, nondistended, bowel sounds present, normal, no organomegaly , no masses palpable. RECTAL EXAM: n ormal tone, no external hemorrhoids, no masses palpable, prostate normal, stool guaiac negative. MALE GENITOURINARY: n ot examined. EXTREMITIES: n o clubbing, cyanosis, or edema. NEUROLOGIC: n onfocal, motor strength normal upper and lower extremities, sensory exam intact. Assessment: * Assessment: 1. A nnual physical exam - Z00.00 (Primary) 2 . T estosterone deficiency in male - E29.1 3 . E rectile dysfunction, unspecified erectile dysfunction type - N52.9 4 . R eflux esophagitis - K21.00 5 . C olon cancer screening - Z12.11 6 . D epression screening - Z13.31 Plan: * Treatment: 2. T estosterone deficiency in male Refill Tadalafil Tablet, 20 MG, 1/2 tablet, Orally, Once a day as needed, 30 days, 30, Refills 5.? Notes: send for notes from [facility] endocrine from last year 3. E rectile dysfunction, unspecified erectile dysfunction type Notes: stable, will continue current regiment 4. R eflux esophagitis Notes: doing well 5. C olon cancer screening L AB: Occult Blood, Stool, Guaiac N egative Value Reference Range O ccult Blood, Stool, Guaiac Neg Notes: guaiac negative??6.?Depression screening? Notes: negative screen?? * Procedure Codes: 8 2270 TEST FOR BLOOD, FECES * Follow Up: 1 Year * * Sign off status: Completed true * Provider: Sam Tobias MD Date: 04/24/2023 Generated for Estevan roberts/Lucero/José Miguel on: 04/22/2024 12:10 PM EST History and Physical Notes * HPI (History of Present Illness) Category Sub-Category Detail Notes Category Not es Symptom(s) patient is a 44 yo male here for annual visit with reviewof recent labs and follow up of chronic issues. Depression Screening PHQ-9 Little inte rest or pleasure in doing things: Not at all Feeling down, depressed, or hopeless: No t at all Trouble falling or staying asleep, or sl eeping too much: Not at all Feeling tired or having little energy: N ot at all Poor appetite or overeating: Not at all Feeling bad about yourself o r that you are a failure, or have let yourself or your family down: Not at all Trouble concentrating on thi ngs, such as reading the newspaper or watching television: Not at all Moving or speaking so slowly that other people could have noticed; or the opposite, being so fidgety or restless that you have been moving around a lot more than usual: Not at all Thoughts that you would be b bharath off or of hurting yourself in some way: Not at all Total Score: 0 SDOH Questions SDOH Questions In the past year have you been worried about losing housing?: No In the past year have you or any family members you live with been unable to get any of the following when it was really needed? Check all that apply:: None Communication Needs Communication Needs Does the patient have a hearing impairment: No Does the patient have a vision impairmen t?: No Does the patient have a cognition impair ment?: No Examination Category Sub-Category Detail Notes Category Not es General Examination GENERAL APPEARANCE: well dev eloped, well nourished, in no acute distress HEAD: normocephalic, atrau matic EYES: pupils equal, round, reactive to light and accommodation, sclera non-icteric EARS: normal THROAT: clear NECK/THYROID: neck supple, full ra nge of motion, no cervical lymphadenopathy, no bruits HEART: regular rate and rhy thm, S1, S2 normal, no murmurs LUNGS: clear to auscultatio n bilaterally ABDOMEN: soft, nontender, non distended, bowel sounds present, normal, no organomegaly , no masses palpable NEUROLOGIC: nonfocal, motor stre ngth normal upper and lower extremities, sensory exam intact SKIN: warm and dry, no tate picious lesions EXTREMITIES: no clubbing, cyanosi s, or edema MALE GENITOURINARY: not examined RECTAL EXAM: normal tone, no exte rnal hemorrhoids, no masses palpable, prostate normal, stool guaiac negative ORAL CAVITY: mucosa moist
--- OUTSIDE RECORDS SUMMARY | 2024-02-23 04:20 | XMS_ITS ---
Author Organization Malcolm Tobias MD Address [address] [place] [phone] Care Team Providers Care Chemist Organic Name Role Phone Malcolm Tobias Primary Care Provider [phone] REASON FOR VISIT FYI Endo Referral Encounters Encounter Location Date Provider Diagnosis Malcolm Tobias MD [address] [facility] [address] [place] [phone] 02/23/2024 Malcolm Tobias Plan Of Treatment Next Appt Details Provider Name:Malcolm Alvarado ier, 02/27/2025 08:30:00 AM, [address] [facility], [address], [phone], Progress Notes * Andrews MENDEZ IVDOB: (44 yo M)Acc No.[id number]:02/23/2024 Patient: Andrews Howell :1980 A ge:44 Y S ex:Male Address:[address] [place], [place] [address]j[place] [address] * true * Date: Generated for Estevan roberts/Lucero/José Miguel on: 04/22/2024 12:10 PM EST
--- OUTSIDE RECORDS SUMMARY | 2025-02-20 02:00 | XMS_ITS ---
Author Organization Malcolm Tobias MD Address [address] [place] [phone] Care Team Providers Care Senior Materials Scientist Name Role Phone Malcolm Tobias Primary Care Provider Results Component Value Reference Range Notes Complete Blood Count Auto Di ff (Not yet reviewed by provider) Interpretation: Performing Lab:[facility], [address] [place] [phone] Notes/Report: White Blood Count 6.5 4.8-10.8 X10*3/uL Red Blood Count 4.92 4.60-5.80 X10*6/uL Hemoglobin 14.0 14.0-18.0 g/dl Hematocrit 40.1 42.0-52.0 % Mean Corpuscular Volume 81.5 80.0-98.0 fL Mean Corpuscular Hemoglobin 28.5 27.0-33.0 pg Mean Corpuscular HGB Conc 34.9 31.0-36.0 g/dl Red Cell Distribution Width 12.5 11.0-16.0 % Platelet Count 281 160-400 X10*3/uL Mean Platelet Volume 10.1 9.4-12.4 fL Neutrophils Percent Auto 57.4 45-73 % Imm Gran Pct Auto 0.5 0.0-0.4 % Lymphocytes Percent Auto 29.3 20-40 % Monocytes Percent Auto 9.3 2-11 % Eosinophils Percent Auto 2.9 0-4 % Basophils Percent Auto 0.6 0-2 % NRBC Pct Auto 0.0 0.0-0.2 /100WBC Neutrophils Absolute Auto 3.7 2.0-8.3 x10*3/u L Imm Gran Abs Auto 0.03 0.00-0.03 X10*3/uL Lymphocytes Absolute Auto 1.9 1.2-4.9 X10*3/u L Monocytes Absolute Auto 0.6 0.1-1.2 X10*3/uL Eosinophils Absolute Auto 0.2 0.0-0.4 X10*3/u L Basophils Absolute Auto 0.0 0.0-0.2 X10*3/uL NRBC Abs Auto 0.000 0.0-0.012 X10*3/uL Comprehensive [place]. Panel Fa st (Not yet reviewed by provider) Interpretation: Performing Lab:[facility], [address] [place] [phone] Notes/Report: Sodium 143 135-145 mmol/L Potassium 3.8 3.3-5.1 mmol/L Chloride 105 96-108 mmol/L Carbon Dioxide 31 22-29 mmol/L Anion Gap 11 12-20 Blood Urea Nitrogen 18 9-16 mg/dL Creatinine 0.88 0.5-1.4 mg/dL Estimated Glomerular Filt Rate > 60 Chronic Kidney Disease: Estimated GFR < 60 mL/min/1.73m2 Severe Kidney Disease: Estimated GFR < 15 mL/min/1.73m2 Glucose Fasting 89 60-99 mg/dL Calcium 9.2 8.4-10.2 mg/dL Bilirubin Total 0.8 0.0-1.0 mg/dL Aspartate Amino Transferase 27 5-37 U/L Alanine Aminotransferase 24 0-40 U/L Total Protein 7.1 6.5-8.0 g/dL Albumin Level 4.7 3.5-5.0 g/dL Alkaline Phosphatase 54 39-117 U/L UA ClnCatch+Micro w/rflx Cul t (Not yet reviewed by provider) Interpretation: Performing Lab:[address] [phone] Notes/Report: Urine, Clean Catch Color Urine Yellow Appearance Urine Clear PH 5.5 5.0-9.0 Glucose Urine UA Negative Negative mg/dL Urine Blood Moderate (2+) Negative Specific [place] - Urine 1.025 1.005-1.025 Urine Protein Trace Neg-Trace mg/dL Urine Ketones Negative Negative mg/dL Nitrite Urine Negative Negative Leukocyte Esterase Urine Negative Negative RBC Urine >20 0-2 /HPF WBC Urine 0-5 0-5 /HPF Squamous Epithelial Cell Urine 0-2 0-2 /HPF Bacteria Urine None Seen None Seen Hyaline Casts Urine 0-2 0-2 /LPF Lipid Panel Reviewed date:02/20/2025 12:01:37 PM Interpretation: Performing Lab:[address] [phone] Notes/Report: Triglycerides 48 <150 mg/dL Desirable Triglyceride: less than 150 mg/dL Borderline High Triglyceride 150-199 mg/dL High Triglyceride: 200-499 mg/dL Very High Triglyceride: greater than or equal to 5OO mg/dL Cholesterol 154 <200 mg/dL Desirable Cholesterol: less than 200 mg/dL Borderline High Cholesterol: 200-239 mg/dL High Cholesterol: greater than 239 mg/dL LDL Cholesterol Calculated 97 <100 mg/dL Desirable LDL: less than 100 mg/dL Near Optimal/Above Optimal LDL: 110-129 mg/dL Borderline High LDL: 130-159 mg/dL High LDL: 160-189 mg/dL Very High LDL: greater than or equal to 190 mg/dL HDL Cholesterol 48 >40 mg/dL Desirable HDL: greater than 40 mg/dL Note: This HDL assay may give artificially low results in patients with liver disease. PSA,Total (Free>4and<10) Reviewed date:02/20/2025 12:01:06 PM Interpretation: Performing Lab:[address] [phone] Notes/Report: PSA,Total (Free>4and<10) 0.66 0.00-4.00 ng/mL A Free PSA was not [...] Segura Alinity i Chemiluminescent Microparticle Immunoassay (CMIA) REASON FOR VISIT yearly fasting labs Immunizations Vaccine Route Administration Date Status Comme nts Fluarix Quadrivalent - 150 IM Intramuscular 02/20/2025 Adm inistered Encounters Encounter Location Date Provider Diagnosis Malcolm Tobias MD [address] [place] [address] Drive [address] [place] [phone] 02/20/2025 Malcolm Tobias Blood tests for routine general physical examination Z00.00 ; Testosterone deficiency in male E29.1 and Encounter for administration of vaccine Z23 Assessments Encounter Date Diagnosis (ICD Code) Assessment Notes Treatment Notes Treatment Clinical Notes Section Notes 02/20/2025 Blood tests for routine general physical examination (ICD-10 - Z00.00) 02/20/2025 Testosterone deficiency in male (ICD-10 - E29.1) 02/20/2025 Encounter for administration of vaccine (ICD-10 - Z23) Plan Of Treatment Pending Test Test Name Order Date Complete Blood Count Auto Diff 5 Comprehensive [place]. Panel Fast 5 Testosterone, Free/Total 02/20/2025 UA ClnCatch+Micro w/rflx Cult 02/20/2025 Next Appt Details Provider Name:Malcolm Alvarado ier, 02/27/2025 08:30:00 AM, [address] [place] [address], [address], [place], [place], [phone], Progress Notes * Andrews MENDEZ IVDOB: (45 yo M)Acc No.[id number]:02/20/2025 Progress Note Patient: Lily EMILYABILIOAndrews IV Provider: Sam Tobias MD :1980 A ge:45 Y S ex:Male Date:02/20/2025 Address:[address] [place], [place] [address]jovanny Borja [facility], [phone] Subjective: * Chief Complaints: * 1 . Yearly fasting labs. * Medical History: Objective: * Vitals: Assessment: * Assessment: 1. B lood tests for routine general physical examination - Z00.00 (Primary) 2 .?Testosterone deficiency in male - E29.1 3 . E ncounter for administration of vaccine - Z23 Plan: * Treatment: 2. T estosterone deficiency in male L AB: Complete Blood Count Auto Diff (Collection Date & Time - 02/20/2025 07:00 AM) L AB: Comprehensive [place]. Panel Fast (Collection Date & Time - 02/20/2025 07:00 AM) L AB: Testosterone, Free/Total L AB: UA ClnCatch+Micro w/rflx Cult (Collection Date & Time - 02/20/2025 07:00 AM) L AB: Lipid Panel (Collection Date & Time - 02/20/2025 07:00 AM) L AB: PSA,Total (Free>4and<10) (Collection Date & Time - 02/20/2025 07:00 AM) * Immunizations: Fluarix Quadrivalent - 150 : 0.5 mL (Dose No:1) (Route: Intramuscular) given by Jessica Torres , Office Staff on Left Deltoid * Procedure Codes: 9 0656 FLU VACCINE NO PRESERV 3 & >, [address] IMMUNIZATION ADMIN * * The named appointment provid er may or may not be the originator of this progress note, and it is not deemed complete until electronically signed by the appointment provider. Sign off status: Pending * Provider: Sam Tobias MD Date: 04/22/2024 Generated for Estevan roberts/Lucero/Vimalitting on: 04/22/2024 12:10 PM EST
[2025-02-20 10:17] LABS: MANUAL DIFF FLAG NO
[2025-02-20 10:44] LABS: Hematocrit 40.1 % (42.0-52.0); Hemoglobin 14.0 g/dl (14.0-18.0); Imm Gran Abs Auto 0.03 X10*3/uL (0.00-0.03); Imm Gran Pct Auto 0.5 % (0.0-0.4); Lymphocytes Absolute Auto 1.9 X10*3/uL (1.2-4.9); Mean Corpuscular HGB Conc 34.9 g/dl (31.0-36.0); Mean Corpuscular Hemoglobin 28.5 pg (27.0-33.0); Mean Corpuscular Volume 81.5 fL (80.0-98.0); NRBC Abs Auto 0.000 X10*3/uL (0.0-0.012); NRBC Pct Auto 0.0 /100WBC (0.0-0.2); Platelet Count 281 X10*3/uL (160-400); Red Blood Count 4.92 X10*6/uL (4.60-5.80); White Blood Count 6.5 X10*3/uL (4.8-10.8)
[2025-02-20 10:56] LABS: Appearance Urine Clear; Glucose Urine UA Negative (Negative); PH 5.5 (5.0-9.0); Specific Gravity - Urine 1.025 (1.005-1.025); UMIC TRIGGER UACC YES
[2025-02-20 10:59] LABS: Alanine Aminotransferase 24 U/L (0-40); Albumin Level 4.7 g/dL (3.5-5.0); Alkaline Phosphatase 54 U/L (39-117); Anion Gap 11 (12-20); Aspartate Amino Transferase 27 U/L (5-37); Blood Urea Nitrogen 18 mg/dL (9-16); Calcium 9.2 mg/dL (8.4-10.2); Carbon Dioxide 31 mmol/L (22-29); Chloride 105 mmol/L (96-108); Cholesterol 154 mg/dL (<200); Estimated Glomerular Filt Rate > 60; HDL Cholesterol 48 mg/dL (>40); Potassium 3.8 mmol/L (3.3-5.1); Sodium 143 mmol/L (135-145); Total Protein 7.1 g/dL (6.5-8.0); Triglycerides 48 mg/dL (<150)
[2025-02-20 11:34] LABS: PSA,Total (Free>4and<10) 0.66 ng/mL (0.00-4.00)
--- OUTSIDE RECORDS SUMMARY | 2025-02-20 12:11 | XMS_ITS | Patient Health Record ---
Author Organization Malcolm Tobias MD Address [address] [place], [place] [id number] Care Team Providers Care Night Assistant Name Role Phone Malcolm Tobias Primary Care Provider Allergies No Known Allergies Results Component Value Reference Range Notes Complete Blood Count Auto Di ff (Not yet reviewed by provider) Interpretation: Performing Lab:[facility], [address] [place] [phone] Notes/Report: White Blood Count 6.5 4.8-10.8 X10*3/uL [...] NRBC Abs Auto 0.000 0.0-0.012 X10*3/uL Comprehensive [place]. Panel Fa st (Not yet reviewed by provider) Interpretation: Performing Lab:[facility], [address] [place] [phone] Notes/Report: Sodium 143 135-145 mmol/L Potassium 3.8 [...] (Not yet reviewed by provider) Interpretation: Performing Lab:[address] [phone] Notes/Report: Urine, Clean Catch Color Urine Yellow Appearance Urine Clear PH 5.5 5.0-9.0 Glucose Urine UA Negative Negative mg/dL Urine Blood Moderate (2+) Negative Specific [place] - Urine 1.025 1.005-1.025 Urine Protein Trace Neg-Trace mg/dL Urine Ketones Negative Negative mg/dL Nitrite Urine Negative Negative Leukocyte Esterase Urine Negative Negative RBC Urine >20 0-2 /HPF WBC Urine 0-5 0-5 /HPF Squamous Epithelial Cell Urine 0-2 0-2 /HPF Bacteria Urine None Seen None Seen Hyaline Casts Urine 0-2 0-2 /LPF Lipid Panel Reviewed date:02/20/2025 12:01:37 PM Interpretation: Performing Lab:[address] [phone] Notes/Report: Triglycerides 48 <150 mg/dL Desirable Triglyceride: [...] (Free>4and<10) Reviewed date:02/20/2025 12:01:06 PM Interpretation: Performing Lab:[address] [phone] Notes/Report: PSA,Total (Free>4and<10) 0.66 0.00-4.00 ng/mL A [...] Segura Alinity i Chemiluminescent Microparticle Immunoassay (CMIA) Occult Blood, Stool, Guaiac Reviewed date:02/23/2024 11:24:33 AM Interpretation:Negative Performing Lab: Notes/Report: Negative Occult Blood, Stool, Guaiac Neg Reason For Referral No Information Medications Medication SIG (Take, Route, Fr equency, Duration) Notes Start Date End Date Status Tadalafil 20 MG 1/2 tablet Orally On ce a day as needed for 30 days 02/14/2022 Active Immunizations Vaccine Route Administration Date Status Comme nts TDaP IM Intramuscular 07/14/2011 Administered Fluarix Quadrivalent IM Intramuscular 01/10/2014 Administe red Flu Vaccine IM Intramuscular 02/02/2015 Administered Flu Vaccine Unknown 01/19/2016 Administered [facility] Flu [facility] IM Intramuscular 01/29/2017 Administered pt wa s given the vaccine at the [facility] [place]. Fluarix Quadrivalent IM Intramuscular 01/05/2018 Administe red Fluarix Quadrivalent IM Intramuscular 01/17/2019 Administe red Fluarix Quadrivalent IM Intramuscular 01/19/2020 Administe red Fluarix Quadrivalent IM Intramuscular 02/05/2021 Administe red SARS-COV-2 Pfizer Unknown 08/09/2020 Administered SARS-COV-2 Pfizer Unknown 08/30/2020 Administered Fluarix Quadrivalent Unknown 12/25/2021 Administered SARS-COV-2 Pfizer Unknown 03/12/2021 Administered SARS-COV-2 Pfizer Unknown 12/25/2021 Administered Fluarix Quadrivalent IM Intramuscular 02/12/2023 Administe red Fluarix Quadrivalent - 150 IM Intramuscular 02/20/2025 Administered Flu Vaccine Unknown 01/10/2014 Pending Tetanus Unknown 07/14/2011 Pending Social History Tobacco Use: Social History Observation [...] Never (0 point) Points 1 Interpretation Negative Problems Problem Type SNOMED Code ICD Code Onset Dates Problem Status W/U Status Risk Notes Problem 325692937 Irritable bowel syndrome with diarrhea (K58.0) Active confirmed Problem 462438031 Reflux esophagitis (K21.00) Active confirmed Problem 105533047 Pectus excavatum (Q67.6) Active confirmed Problem 176070305 Erectile dysfunction, unspecified erectile dysfunction type (N52.9) Active confirmed Problem 326661748 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 confirmed Problem 4303750065063 Testosterone deficiency in male (E29.1) Active confirmed Vital Signs Blood pressure diastolic 66 mm Hg 02/23/2024 Height 72 in 02/23/2024 Blood pressure systolic 112 mm Hg 02/23/2024 Weight 170 lbs 02/23/2024 BMI 23.05 kg/m2 02/23/2024 Encounters Encounter Location Date Provider Diagnosis Malcolm Tobias MD [address] [place] [id number] 02/20/2025 Malcolm Tobias Blood tests for routine general physical examination Z00.00 ; Testosterone deficiency in male E29.1 and Encounter for administration of vaccine Z23 Malcolm Tobias MD [address] [place] [id number] 02/23/2024 Malcolm Tobias Testosterone deficiency in male E29.1 ; Annual physical exam Z00.00 ; Erectile dysfunction, unspecified erectile dysfunction type N52.9 ; Reflux esophagitis K21.00 ; Colon cancer screening Z12.11 and Depression screening Z13.31 Malcolm Tobias MD [address] [place] [id number] 02/23/2024 Malcolm Tobias Assessments Encounter Date Diagnosis (ICD Code) Assessment Notes Treatment Notes Treatment Clinical Notes Section Notes 02/20/2025 Blood tests for routine general physical examination (ICD-10 - Z00.00) 02/20/2025 Testosterone deficiency in male (ICD-10 - E29.1) 02/23/2024 Testosterone deficiency in male (ICD-10 - E29.1) send for notes from [facility] endocrine from last year 02/23/2024 Annual physical exam (ICD-10 - Z00.00) labs reviewed and discussed with patient 02/20/2025 Encounter for administration of vaccine (ICD-10 - Z23) 02/23/2024 Erectile dysfunction, unspecified erectile dysfunction type (ICD-10 - N52.9) stable, will continue current regiment 02/23/2024 Reflux esophagitis (ICD-10 - K21.00) doing well 02/23/2024 Colon cancer screening (ICD-10 - Z12.11) guaiac negative 02/23/2024 Depression screening (ICD-10 - Z13.31) negative screen Plan Of Treatment Pending Test Test Name Order Date Electrocardiogram (EKG) 03/07/2016 ECHO 02/14/2022 ECHO 04/18/2022 Complete Blood Count Auto Diff 5 Comprehensive [place]. Panel Fast 5 Testosterone, Free/Total 02/20/2025 UA ClnCatch+Micro w/rflx Cult 02/20/2025 Next Appt Details Provider Name:Malcolm betts, 02/27/2025 08:30:00 AM, [address] [facility], [address], [place], [place], [phone], Insurance Providers Payer Name Payer Address Payer Phone Subscriber Number Group Number Insured Name Patient Relationship to Insured Coverage Start Date Coverage End Date [facility] [address] [place] [place] [phone] [id number] Andrews Mendez Self - patient is the insured Medical (General) History Medical History History ICD Code concern for marfan's but can 't afford the test. mother had been tested for. genetic councellor wants to test him for rodney's danlos
[2025-02-26 14:13] LABS: Testosterone, Free 75.8 pg/mL (35.0-155.0)
== END 2025-02-20 10:12 | disposition home or self-care (01) ==
LOC: HO.LNP 10:11
PROVIDERS: Visit Provider Internal Medicine
DX: Z00.00 Encounter for general adult medical examination without abnormal findings (principal); Z13.6 Encounter for screening for cardiovascular disorders; Z12.5 Encounter for screening for malignant neoplasm of prostate; E29.1 Testicular hypofunction
CPT/HCPCS: 80053; 80061; 81001; 84153; 84402; 84403; 85025